=== PATIENT | male | born 1955 | race Caucasian/White ===

== ENCOUNTER 2017-07-04 09:56 | Emergency (ER) | payer MEDICARE, MEDICAID ==
--- NOTE | 2017-07-04 11:16 | CT ---
CT BRAIN WITHOUT CONTRAST: Comparison: None. History: Headache with dizziness and weakness for three days. Technique: Multiple contiguous axial images were obtained in a CT of the brain without contrast. FINDINGS: There are scattered hypodensities in the subcortical and periventricular white matter, likely seconda ry to small vessel ischemic disease. There is no evidence of hydrocephalus, intracranial hemorrhage, or extraaxial fluid collection. No large confluent infarction is seen. The calvarium and overlying soft tissues are unremarkable. The visualized paranasal sinuses and masto id air cells are well aerated. IMPRESSION: Small vessel ischemic disease without acute intracranial abnormality. POS: [facility]
[2017-07-04 11:29] LABS: Hemoglobin 14.7 g/dL (14.0-18.0); Mean Corpuscular HGB CONC 35.3 g/dL (32.0-36.0); Mean Corpuscular Hemoglobin 32.8 pg (27.0-31.0); Mean Corpuscular Volume 92.8 fl (80.0-94.0); Mean Platelet Volume 6.8 fL (7.4-10.4); Platelet Count 110 thou/uL (130-400); RBC Distribution Width 11.9 % (11.5-14.5); Red Blood Cell (RBC) Count 4.47 mill/uL (4.70-6.10); White Blood Cell (WBC) Count 2.7 thou/uL (4.8-10.8)
[2017-07-04 11:33] LABS: ALT (SGPT) 29 U/L (8-55); AST (SGOT) 87 U/L (5-34); Albumin 3.9 g/dL (3.4-4.8); Alkaline Phosphatase 86 U/L (40-150); Anion Gap 14 mmol/L (10-20); BUN (Urea Nitrogen) 10 mg/dL (8.4-25.7); Bilirubin, Total 2.5 mg/dL (0.2-1.2); Calc. Creatinine Clearance 0 mL/min (70-130); Calcium 8.9 mg/dL (7.8-10.44); Carbon Dioxide 26 mmol/L (23-31); Chloride 96 mmol/L (98-107); Estimated GFR-MDRD Greater than 90; Globulin 4.6 g/dL (2.4-3.5); Glucose 137 mg/dL (80-115); Potassium 3.1 mmol/L (3.5-5.1); Protein, Total 8.5 g/dL (5.8-8.1); Sodium 133 mmol/L (136-145)
[2017-07-04 11:35] LABS: Band 11 % (5-11); Lymphocytes 33 % (21-51); MDiff Complete? YES; Monocytes 22 % (0-10); Neutrophil 31 % (42-75); PLT Morphology Comment Appears Decreased; RBC Morphology Normal; Reactive Lymphocytes 3 % (0-10)
--- NOTE | 2017-07-04 11:54 | RAD ---
CHEST ONE VIEW: History: Dyspnea. Comparison: None. FINDINGS: Moderate reversed S-shaped scoliosis of the thoracic spine. Bilateral layering effusion. Chronic pleu ral and parenchymal changes in the lung bases. Right infrahilar air space opacity. No associated rib fracture. IMPRESSION: 1. Small right effusion. 2. Chronic appearing interstitial opacities in both lower lobes as well as right middle lobe. 3. Right hilar and infrahilar opacity both may reflect scarring or pneumonia versus less likely mass. Follow up recommended. POS: [facility]
[2017-07-04] MEDS ORDERED: Potassium Chloride 20 MEQ TAB ONE (11:58)
[2017-07-04] MEDS ORDERED: Azithromycin 250 MG TAB ONE (11:58)
== END 2017-07-04 14:04 | disposition home or self-care (01) ==
LOC: ERS 09:56
DX: J18.9 Pneumonia, unspecified organism (principal); I11.0 Hypertensive heart disease with heart failure; I50.9 Heart failure, unspecified; J45.909 Unspecified asthma, uncomplicated; Z87.891 Personal history of nicotine dependence
CPT/HCPCS: 70450; 71045; 80053; 85025

== ENCOUNTER 2020-08-04 10:17 | Outpatient (CLI) | payer MEDICARE, MEDICAID | END 2020-08-04 10:18 | disposition home or self-care (01) | LOC: BICRAD 10:17 | PROVIDERS: ATTEND Physician Assistant | DX: M25.612 Stiffness of left shoulder, not elsewhere classified (principal); M19.012 Primary osteoarthritis, left shoulder ==

== ENCOUNTER 2023-06-07 11:21 | Inpatient (IN) | payer MEDICARE, MEDICAID ==
[2023-06-07 12:26] LABS: #Eosinphils 0.1 thou/uL (0.0-0.7); #Monocytes 0.4 thou/uL (0.11-0.59); #Neutrophils 2.1 thou/uL (1.40-6.50); %Basophils 0.9 % (0.0-1.0); %Eosinophils 3.5 % (0.0-10.0); %Lymphocytes 15.2 % (21.0-51.0); %Monocytes 13.9 % (0.0-10.0); %Neutrophils 66.2 % (42.0-75.0); Hematocrit 35.6 % (42.0-52.0); Hemoglobin 12.8 g/dL (14.0-18.0); Mean Corpuscular Hemoglobin 33.1 pg (27.0-31.0); Mean Platelet Volume 8.3 fL (7.4-10.4); Platelet Count 120 10x3/uL (130-400); RBC Distribution Width 12.5 % (11.5-14.5); Red Blood Cell (RBC) Count 3.87 mill/uL (4.70-6.10); White Blood Cell (WBC) Count 3.2 10x3/uL (4.8-10.8)
[2023-06-07 12:49] LABS: ALT (SGPT) 10 U/L (8-55); AST (SGOT) 25 U/L (5-34); Alkaline Phosphatase 80 U/L (40-110); Anion Gap 13 mmol/L (10-20); BUN (Urea Nitrogen) 8 mg/dL (8.4-25.7); Bilirubin, Total 2.7 mg/dL (0.2-1.2); Calc. Creatinine Clearance 0 mL/min (70-130); Calcium 8.8 mg/dL (7.8-10.44); Carbon Dioxide 33 mmol/L (23-31); Chloride 92 mmol/L (98-107); Estimated GFR 99; Glucose 124 mg/dL (80-115); Potassium 3.6 mmol/L (3.5-5.1); Sodium 134 mmol/L (136-145)
[2023-06-07 12:59] LABS: Troponin I 0.047 ng/mL (< 0.028)
[2023-06-07] MEDS ORDERED: Acetaminophen 500 MG TAB ONE (13:36)
[2023-06-07] MEDS ORDERED: Iopamidol-370 76% 500 ML MDV (1 ML CHARGE) ONE (13:37)
[2023-06-07] MEDS ORDERED: Morphine 4 MG/ML VIAL ONE (15:11)
[2023-06-07 16:28] LABS: Troponin I 0.037 ng/mL (< 0.028)
[2023-06-07] MEDS ORDERED: Acetaminophen 325 MG TAB PO PRN (18:40)
[2023-06-07] MEDS ORDERED: HYDROcodone/Acetaminophen 5/325 mg Tablet PO PRN (18:41)
[2023-06-07] MEDS ORDERED: Ondansetron ODT 8 MG TAB SL PRN (18:42)
[2023-06-07 19:08] LABS: Troponin I 0.042 ng/mL (< 0.028)
[2023-06-07 19:47] VITALS: BMI 21.7
[2023-06-07] MEDS: Enoxaparin 40 MG (0.4 mL) SYRINGE SC SCH (20:44)
[2023-06-08] MEDS: Ipratropium/Albuterol 3 ML NEB NEB SCH ×2 (07:06→18:16)
[2023-06-08] MEDS: Thiamine 100 MG TAB PO SCH (09:10)
[2023-06-08] MEDS: Folic Acid 1 MG TAB PO SCH (09:10)
[2023-06-08] MEDS: Aspirin 81 mg Enteric Coated Tablet PO SCH (09:10)
[2023-06-08] MEDS: Multivitamin W/ Minerals 1 TAB PO SCH (09:10)
[2023-06-08] MEDS: Enoxaparin 40 MG (0.4 mL) SYRINGE SC SCH (20:19)
[2023-06-09] MEDS: Ipratropium/Albuterol 3 ML NEB NEB SCH ×2 (07:06→18:43)
[2023-06-09] MEDS: Thiamine 100 MG TAB PO SCH (08:55)
[2023-06-09] MEDS: Multivitamin W/ Minerals 1 TAB PO SCH (08:55)
[2023-06-09] MEDS: Aspirin 81 mg Enteric Coated Tablet PO SCH (08:55)
[2023-06-09] MEDS: Folic Acid 1 MG TAB PO SCH (08:55)
[2023-06-09] MEDS: Enoxaparin 40 MG (0.4 mL) SYRINGE SC SCH (20:12)
[2023-06-10 06:39] LABS: #Eosinphils 0.1 thou/uL (0.0-0.7); #Monocytes 0.5 thou/uL (0.11-0.59); #Neutrophils 2.1 thou/uL (1.40-6.50); %Basophils 0.6 % (0.0-1.0); %Eosinophils 3.1 % (0.0-10.0); %Monocytes 15.8 % (0.0-10.0); %Neutrophils 63.5 % (42.0-75.0); Hematocrit 32.6 % (42.0-52.0); Hemoglobin 11.3 g/dL (14.0-18.0); Mean Corpuscular HGB CONC 34.7 g/dL (32.0-36.0); Mean Corpuscular Volume 95.3 fl (78.0-98.0); Mean Platelet Volume 8.3 fL (7.4-10.4); Platelet Count 124 10x3/uL (130-400); RBC Distribution Width 12.4 % (11.5-14.5); Red Blood Cell (RBC) Count 3.42 mill/uL (4.70-6.10); White Blood Cell (WBC) Count 3.2 10x3/uL (4.8-10.8)
[2023-06-10 07:09] LABS: ALT (SGPT) 10 U/L (8-55); AST (SGOT) 25 U/L (5-34); Albumin 2.8 g/dL (3.4-4.8); Alkaline Phosphatase 75 U/L (40-110); Anion Gap 10 mmol/L (10-20); BUN (Urea Nitrogen) 9 mg/dL (8.4-25.7); Bilirubin, Total 2.4 mg/dL (0.2-1.2); Calc. Creatinine Clearance 88 mL/min (70-130); Calcium 8.6 mg/dL (7.8-10.44); Carbon Dioxide 31 mmol/L (23-31); Chloride 97 mmol/L (98-107); Estimated GFR 101; Globulin 3.7 g/dL (2.4-3.5); Glucose 108 mg/dL (80-115); Potassium 4.3 mmol/L (3.5-5.1); Protein, Total 6.5 g/dL (5.8-8.1); Sodium 134 mmol/L (136-145)
[2023-06-10] MEDS: Ipratropium/Albuterol 3 ML NEB NEB SCH ×2 (07:57→18:43)
[2023-06-10] MEDS ORDERED: FLU VACC QS2023(65UP)/MF59C/PF 60 MCG/0.5 ML SYRINGE IM ONE (09:00)
[2023-06-10] MEDS: Folic Acid 1 MG TAB PO SCH (09:56)
[2023-06-10] MEDS: Multivitamin W/ Minerals 1 TAB PO SCH (09:56)
[2023-06-10] MEDS: Aspirin 81 mg Enteric Coated Tablet PO SCH (09:56)
[2023-06-10] MEDS: Thiamine 100 MG TAB PO SCH (09:56)
[2023-06-10 13:38] LABS: Magnesium 1.5 mg/dL (1.6-2.6)
[2023-06-10] MEDS ORDERED: Magnesium Sulfate In Water 4 GM in Premix 1 BAG IVPB SCH (17:15)
[2023-06-10] MEDS ORDERED: Magnesium Sulfate 4 GM in Sodium Chloride 0.9% 250 ML 250 ML IVPB SCH (17:15)
[2023-06-10] MEDS ORDERED: traMADol HCl 50 MG TAB PO PRN (17:43)
[2023-06-10] MEDS ORDERED: Magnesium Oxide 400 MG TAB PO SCH (19:45)
[2023-06-11] MEDS: Ipratropium/Albuterol 3 ML NEB NEB SCH (07:17)
[2023-06-11 07:29] LABS: #Eosinphils 0.1 thou/uL (0.0-0.7); #Monocytes 0.4 thou/uL (0.11-0.59); #Neutrophils 2.3 thou/uL (1.40-6.50); %Basophils 0.6 % (0.0-1.0); %Eosinophils 4.2 % (0.0-10.0); %Lymphocytes 10.5 % (21.0-51.0); %Monocytes 12.5 % (0.0-10.0); %Neutrophils 71.9 % (42.0-75.0); Hematocrit 33.7 % (42.0-52.0); Hemoglobin 11.7 g/dL (14.0-18.0); Mean Corpuscular HGB CONC 34.7 g/dL (32.0-36.0); Mean Corpuscular Hemoglobin 33.1 pg (27.0-31.0); Mean Corpuscular Volume 95.5 fl (78.0-98.0); Mean Platelet Volume 8.9 fL (7.4-10.4); RBC Distribution Width 12.4 % (11.5-14.5); Red Blood Cell (RBC) Count 3.53 mill/uL (4.70-6.10); White Blood Cell (WBC) Count 3.1 10x3/uL (4.8-10.8)
[2023-06-11 07:37] LABS: Platelet Count 111 10x3/uL (130-400)
[2023-06-11 07:40] LABS: INR-International Normal Ratio 1.3; PTT 34.3 sec (22.9-36.1); Prothrombin Time 15.9 sec (12.0-14.7)
[2023-06-11 07:44] LABS: Anion Gap 12 mmol/L (10-20); BUN (Urea Nitrogen) 11 mg/dL (8.4-25.7); Calc. Creatinine Clearance 91 mL/min (70-130); Calcium 8.5 mg/dL (7.8-10.44); Carbon Dioxide 24 mmol/L (23-31); Chloride 98 mmol/L (98-107); Estimated GFR 102; Glucose 106 mg/dL (80-115); Magnesium 3.7 mg/dL (1.6-2.6); Sodium 130 mmol/L (136-145)
[2023-06-11] MEDS: Thiamine 100 MG TAB PO SCH (08:59)
[2023-06-11] MEDS: Folic Acid 1 MG TAB PO SCH (08:59)
[2023-06-11] MEDS: Multivitamin W/ Minerals 1 TAB PO SCH (08:59)
[2023-06-11] MEDS: Aspirin 81 mg Enteric Coated Tablet PO SCH (08:59)
[2023-06-11] MEDS ORDERED: Ergocalciferol 1.25 MG(50,000 UNITS) CAP PO SCH (09:00)
[2023-06-11 12:27] VITALS: BP 150/72; TEMP 98.2
== END 2023-06-11 16:02 | DRG 183 ==
LOC: ERS 11:21 → ERHOLD 14:21 → 2SW 19:48 → OBSVTOIN 06-08 14:18
PROVIDERS: ADMIT Internal Medicine; ATTEND Internal Medicine
DX: S22.42XA Multiple fractures of ribs, left side, initial encounter for closed fracture (principal); I21.A1 Myocardial infarction type 2; D61.818 Other pancytopenia; M48.56XA Collapsed vertebra, not elsewhere classified, lumbar region, initial encounter for fracture; E44.0 Moderate protein-calorie malnutrition; E87.1 Hypo-osmolality and hyponatremia; I42.9 Cardiomyopathy, unspecified; I48.20 Chronic atrial fibrillation, unspecified; I10 Essential (primary) hypertension; M21.371 Foot drop, right foot; J45.909 Unspecified asthma, uncomplicated; K80.20 Calculus of gallbladder without cholecystitis without obstruction; E83.42 Hypomagnesemia; D69.6 Thrombocytopenia, unspecified; E88.09 Other disorders of plasma-protein metabolism, not elsewhere classified; R53.1 Weakness; M48.061 Spinal stenosis, lumbar region without neurogenic claudication; M48.07 Spinal stenosis, lumbosacral region; K74.60 Unspecified cirrhosis of liver; Z98.890 Other specified postprocedural states; Z79.51 Long term (current) use of inhaled steroids; Z68.21 Body mass index [BMI] 21.0-21.9, adult; W19.XXXA Unspecified fall, initial encounter
CPT/HCPCS: 36415; 70450; 71250; 71260; 72125; 72170; 74177; 80048; 80053; 82306; 83735; 84100; 84484; 85025; 85610; 85730; 87324; 87449; 90471; 90694; 93005; 93306; 94640; 94760; 96372; 96374; G0008; G0378; J1650; J2270; J7620; Q9967

== ENCOUNTER 2023-11-17 12:14 | Inpatient (IN) | payer MEDICARE, MEDICAID ==
[2023-11-17 13:47] LABS: #Basophils 0.03 10x3/uL (0.0-0.2); %Basophils 0.7 % (0.0-1.0); %Eosinophils 1.8 % (0.0-10.0); %Lymphocytes 11.3 % (21.0-51.0); %Monocytes 13.1 % (0.0-10.0); %Neutrophils 72.9 % (42.0-75.0); Hematocrit 37.6 % (42.0-52.0); Hemoglobin 13.3 g/dL (14.0-18.0); Mean Corpuscular HGB CONC 35.4 g/dL (32.0-36.0); Mean Corpuscular Hemoglobin 32.8 pg (27.0-31.0); Mean Corpuscular Volume 92.8 fL (78.0-98.0); Mean Platelet Volume 8.7 fL (7.4-10.4); Platelet Count 124 10x3/uL (130-400); RBC Distribution Width 12.7 % (11.5-14.5); Red Blood Cell (RBC) Count 4.05 mill/uL (4.70-6.10)
[2023-11-17 14:37] LABS: Troponin I 0.031 ng/mL (< 0.028)
[2023-11-17 14:41] LABS: Calcium 9.1 mg/dL (7.8-10.44); Chloride 98 mmol/L (98-107); Potassium 4.1 mmol/L (3.5-5.1); Sodium 132 mmol/L (136-145)
[2023-11-17 14:42] LABS: Globulin 4.2 g/dL (2.4-3.5); Glucose 116 mg/dL (80-115); Protein, Total 7.2 g/dL (5.8-8.1)
[2023-11-17 14:43] LABS: Anion Gap 14 mmol/L (10-20); Carbon Dioxide 24 mmol/L (23-31)
[2023-11-17 14:45] LABS: Alkaline Phosphatase 75 U/L (40-110); Bilirubin, Total 4.2 mg/dL (0.2-1.2)
[2023-11-17 14:46] LABS: BUN (Urea Nitrogen) 10 mg/dL (8.4-25.7); Calc. Creatinine Clearance 0 mL/min (70-130); Estimated GFR 100
[2023-11-17 14:48] LABS: ALT (SGPT) 13 U/L (8-55); AST (SGOT) 30 U/L (5-34); CK (CPK) 90 U/L (30-200)
[2023-11-17 17:18] LABS: Bilirubin Negative (Negative); Blood, Urine Negative (Negative); CAUTI Indications for Culture Alt mental st,lethar; Clarity Turbid (Clear); Glucose, Urine (Dipstick) Normal (Negative); Ketone, Urine Negative (Negative); Leukocyte 500 Leu/uL (Negative); Nitrite Negative (Negative); Protein, Urine (Dipstick) Negative (Neg-Trace); RBC/HPF 0-3 HPF (0-3); Specific Gravity, Urine 1.008 (1.002-1.036); Urobilinogen 3 mg/dL (Less than 2); WBC/HPF 21-50 HPF (0-3); pH, Urine 6.5 (5.0-9.0)
[2023-11-17 17:41] LABS: Transitional Epithelial 0-3 HPF (None Seen)
[2023-11-17 17:42] LABS: Bacteria/HPF 4+ HPF (None Seen); Urine Culture Reflex Yes Yes
[2023-11-17] MEDS ORDERED: Sodium Chloride 0.9% 100 ML ONE (19:51)
[2023-11-17 22:24] LABS: Troponin I 0.038 ng/mL (< 0.028)
[2023-11-17] MEDS ORDERED: Acetaminophen 650 MG Suppository PR PRN (22:53)
[2023-11-17] MEDS ORDERED: Ondansetron PF 4 MG/2 ML Vial IVP PRN (22:53)
[2023-11-17] MEDS ORDERED: Ondansetron ODT 4 MG TAB PO PRN (22:53)
[2023-11-17] MEDS ORDERED: Albuterol 200 PUFF INH INH PRN (22:58)
[2023-11-18 00:34] LABS: Troponin I 0.041 ng/mL (< 0.028)
[2023-11-18 02:12] VITALS: BMI 21.7
[2023-11-18 05:36] LABS: #Basophils 0.03 10x3/uL (0.0-0.2); %Basophils 0.8 % (0.0-1.0); %Eosinophils 3.5 % (0.0-10.0); %Lymphocytes 17.2 % (21.0-51.0); %Neutrophils 60.2 % (42.0-75.0); Hematocrit 33.2 % (42.0-52.0); Hemoglobin 11.8 g/dL (14.0-18.0); Mean Corpuscular HGB CONC 35.5 g/dL (32.0-36.0); Mean Corpuscular Hemoglobin 33.1 pg (27.0-31.0); Mean Platelet Volume 8.9 fL (7.4-10.4); Platelet Count 119 10x3/uL (130-400); RBC Distribution Width 12.5 % (11.5-14.5); Red Blood Cell (RBC) Count 3.57 mill/uL (4.70-6.10)
[2023-11-18 06:03] LABS: Iron 48 ug/dL (65-175); Iron Binding Capacity, Total 165 mcg/dL (261-462)
[2023-11-18 06:04] LABS: ALT (SGPT) 11 U/L (8-55); AST (SGOT) 25 U/L (5-34); Albumin 2.7 g/dL (3.4-4.8); Alkaline Phosphatase 65 U/L (40-110); Anion Gap 13 mmol/L (10-20); BUN (Urea Nitrogen) 12 mg/dL (8.4-25.7); Bilirubin, Total 2.6 mg/dL (0.2-1.2); Calc. Creatinine Clearance 110 mL/min (70-130); Calcium 8.7 mg/dL (7.8-10.44); Carbon Dioxide 25 mmol/L (23-31); Chloride 100 mmol/L (98-107); Estimated GFR 102; Globulin 3.7 g/dL (2.4-3.5); Glucose 106 mg/dL (80-115); Iron 47 ug/dL (65-175); Iron Binding Capacity, Total 168 mcg/dL (261-462); Potassium 3.4 mmol/L (3.5-5.1); Protein, Total 6.4 g/dL (5.8-8.1); Sodium 135 mmol/L (136-145)
[2023-11-18] MEDS: Cyanocobalamin (Vitamin B-12) 1,000 MCG TAB PO SCH (08:25)
[2023-11-18] MEDS: Famotidine 20 MG TAB PO SCH (08:25)
[2023-11-18] MEDS: Folic Acid 1 MG TAB PO SCH (08:26)
[2023-11-18] MEDS: Thiamine 100 MG TAB PO SCH (08:26)
[2023-11-18] MEDS: Multivitamin W/ Minerals 1 TAB PO SCH (08:26)
[2023-11-18] MEDS: Famotidine/PF 20 mg/2ml Vial SLOW IVP SCH (08:26)
[2023-11-18] MEDS: cefTRIAXone\\ROCEPHIN 1 GM in Sodium Chloride 0.9% 100 ML IVPB SCH (09:34)
[2023-11-18] MEDS: Lorazepam 0.5 MG TAB PO PRN (11:39)
[2023-11-18 17:39] LABS: Amphetamine Not Detected (NotDetected); Barbiturates Screen Not Detected (NotDetected); Benzodiazepine Screen Not Detected (NotDetected); Cocaine Metabolite Screen Not Detected (NotDetected); Methadone Not Detected (NotDetected); Methamphetamine Not Detected (NotDetected); Opiate Screen Not Detected (NotDetected); Oxycodone Screen Not Detected (NotDetected); Phencyclidine (PCP) Not Detected (NotDetected); THC/Cannabinoid Screen Not Detected (NotDetected); Tricyclic Screen Not Detected (NotDetected)
[2023-11-18] MEDS: Acetaminophen 650 MG/20.3 ML UDCUP PO PRN (19:51)
[2023-11-19 05:14] LABS: Troponin I 0.041 ng/mL (< 0.028)
[2023-11-19] MEDS ORDERED: Milk Of Magnesia 30 ML UDCUP PO PRN (17:37)
[2023-11-20 05:19] LABS: #Basophils 0.03 10x3/uL (0.0-0.2); %Basophils 0.9 % (0.0-1.0); %Eosinophils 4.9 % (0.0-10.0); %Lymphocytes 21.9 % (21.0-51.0); Hematocrit 31.7 % (42.0-52.0); Hemoglobin 11.3 g/dL (14.0-18.0); Mean Corpuscular HGB CONC 35.6 g/dL (32.0-36.0); Mean Corpuscular Hemoglobin 32.9 pg (27.0-31.0); Mean Corpuscular Volume 92.4 fL (78.0-98.0); Mean Platelet Volume 8.9 fL (7.4-10.4); Platelet Count 128 10x3/uL (130-400); RBC Distribution Width 12.3 % (11.5-14.5); Red Blood Cell (RBC) Count 3.43 mill/uL (4.70-6.10)
[2023-11-20 05:23] LABS: ALT (SGPT) 14 U/L (8-55); AST (SGOT) 27 U/L (5-34); Albumin 2.5 g/dL (3.4-4.8); Alkaline Phosphatase 68 U/L (40-110); Anion Gap 11 mmol/L (10-20); BUN (Urea Nitrogen) 10 mg/dL (8.4-25.7); Bilirubin, Total 1.6 mg/dL (0.2-1.2); Calc. Creatinine Clearance 120 mL/min (70-130); Calcium 8.3 mg/dL (7.8-10.44); Carbon Dioxide 25 mmol/L (23-31); Chloride 97 mmol/L (98-107); Estimated GFR 104; Globulin 3.6 g/dL (2.4-3.5); Glucose 110 mg/dL (80-115); Potassium 3.5 mmol/L (3.5-5.1); Protein, Total 6.1 g/dL (5.8-8.1); Sodium 129 mmol/L (136-145)
[2023-11-20] MEDS: Aspirin 81 mg Enteric Coated Tablet PO SCH (08:48)
[2023-11-20] MEDS: traZODone HCl 50 MG TAB PO PRN (21:42)
[2023-11-21 04:45] LABS: #Basophils 0.03 10x3/uL (0.0-0.2); %Basophils 0.8 % (0.0-1.0); %Eosinophils 4.1 % (0.0-10.0); %Lymphocytes 19.5 % (21.0-51.0); %Monocytes 14.2 % (0.0-10.0); %Neutrophils 61.1 % (42.0-75.0); Hematocrit 31.4 % (42.0-52.0); Hemoglobin 11.3 g/dL (14.0-18.0); Mean Corpuscular Hemoglobin 34.3 pg (27.0-31.0); Mean Corpuscular Volume 95.4 fL (78.0-98.0); Mean Platelet Volume 8.7 fL (7.4-10.4); Platelet Count 134 10x3/uL (130-400); RBC Distribution Width 12.4 % (11.5-14.5); Red Blood Cell (RBC) Count 3.29 mill/uL (4.70-6.10)
[2023-11-21 04:55] LABS: Anion Gap 12 mmol/L (10-20); BUN (Urea Nitrogen) 11 mg/dL (8.4-25.7); Calc. Creatinine Clearance 114 mL/min (70-130); Calcium 8.5 mg/dL (7.8-10.44); Carbon Dioxide 27 mmol/L (23-31); Chloride 99 mmol/L (98-107); Estimated GFR 103; Glucose 105 mg/dL (80-115); Magnesium 1.4 mg/dL (1.6-2.6); Potassium 3.6 mmol/L (3.5-5.1); Sodium 134 mmol/L (136-145)
[2023-11-21] MEDS: Magnesium 2 GM/50 ML(in water) 2 GM in Premix 1 BAG IVPB SCH (09:56)
[2023-11-22 04:52] LABS: #Basophils 0.03 10x3/uL (0.0-0.2); %Basophils 0.7 % (0.0-1.0); %Eosinophils 3.4 % (0.0-10.0); %Lymphocytes 14.9 % (21.0-51.0); %Monocytes 11.7 % (0.0-10.0); %Neutrophils 68.8 % (42.0-75.0); Hematocrit 30.5 % (42.0-52.0); Hemoglobin 10.7 g/dL (14.0-18.0); Mean Corpuscular HGB CONC 35.1 g/dL (32.0-36.0); Mean Corpuscular Hemoglobin 34.2 pg (27.0-31.0); Mean Corpuscular Volume 97.4 fL (78.0-98.0); Mean Platelet Volume 8.7 fL (7.4-10.4); Platelet Count 124 10x3/uL (130-400); RBC Distribution Width 12.7 % (11.5-14.5); Red Blood Cell (RBC) Count 3.13 mill/uL (4.70-6.10)
[2023-11-22 05:18] LABS: ALT (SGPT) 15 U/L (8-55); AST (SGOT) 29 U/L (5-34); Albumin 2.3 g/dL (3.4-4.8); Alkaline Phosphatase 74 U/L (40-110); Anion Gap 10 mmol/L (10-20); BUN (Urea Nitrogen) 11 mg/dL (8.4-25.7); Bilirubin, Total 1.4 mg/dL (0.2-1.2); Calc. Creatinine Clearance 114 mL/min (70-130); Calcium 8.2 mg/dL (7.8-10.44); Carbon Dioxide 26 mmol/L (23-31); Chloride 99 mmol/L (98-107); Estimated GFR 103; Globulin 3.6 g/dL (2.4-3.5); Glucose 120 mg/dL (80-115); Magnesium 1.6 mg/dL (1.6-2.6); Potassium 3.6 mmol/L (3.5-5.1); Protein, Total 5.9 g/dL (5.8-8.1); Sodium 131 mmol/L (136-145)
[2023-11-22 08:32] VITALS: TEMP 97.8
[2023-11-22] MEDS: Magnesium 2 GM/50 ML(in water) 2 GM in Premix 1 BAG IVPB SCH ×2 (10:48→10:55)
[2023-11-22 16:33] VITALS: BP 124/75
[2023-11-23] MEDS ORDERED: Magnesium Oxide 400 MG TAB PO SCH (09:00)
== END 2023-11-22 17:45 | DRG 689 ==
LOC: ERS 12:14 → T4-A 18:48 → 2NO 11-18 02:06 → OBSVTOIN 11-19 14:03
PROVIDERS: ADMIT Internal Medicine; ATTEND Hospitalist
DX: N39.0 Urinary tract infection, site not specified (principal); E43 Unspecified severe protein-calorie malnutrition; I50.42 Chronic combined systolic (congestive) and diastolic (congestive) heart failure; E87.1 Hypo-osmolality and hyponatremia; D61.818 Other pancytopenia; K74.60 Unspecified cirrhosis of liver; R62.7 Adult failure to thrive; R53.81 Other malaise; R29.6 Repeated falls; I10 Essential (primary) hypertension; B96.20 Unspecified Escherichia coli [E. coli] as the cause of diseases classified elsewhere; K76.9 Liver disease, unspecified; D69.6 Thrombocytopenia, unspecified; J45.909 Unspecified asthma, uncomplicated; I48.0 Paroxysmal atrial fibrillation; R79.89 Other specified abnormal findings of blood chemistry; W19.XXXA Unspecified fall, initial encounter; Z68.21 Body mass index [BMI] 21.0-21.9, adult; Z79.82 Long term (current) use of aspirin; Z79.899 Other long term (current) drug therapy; Z91.148 Patient's other noncompliance with medication regimen for other reason
CPT/HCPCS: 36415; 36416; 70450; 71045; 76705; 80048; 80053; 80306; 81001; 82140; 82550; 83540; 83550; 83735; 84484; 85025; 87040; 87077; 87086; 87186; 93005; 96374; 96376; G0378; J0696; J3475; J3490

== ENCOUNTER 2024-05-30 14:10 | Emergency (ER) | payer MEDICARE, MEDICAID ==
[2024-05-30 15:09] LABS: #Basophils 0.03 10x3/uL (0.0-0.2); %Basophils 0.5 % (0.0-1.0); %Eosinophils 0.5 % (0.0-10.0); %Lymphocytes 3.8 % (21.0-51.0); %Monocytes 8.8 % (0.0-10.0); %Neutrophils 86.1 % (42.0-75.0); Hemoglobin 11.3 g/dL (14.0-18.0); Mean Corpuscular HGB CONC 35.3 g/dL (32.0-36.0); Mean Corpuscular Hemoglobin 32.2 pg (27.0-31.0); Mean Corpuscular Volume 91.2 fL (78.0-98.0); Mean Platelet Volume 8.3 fL (7.4-10.4); Platelet Count 115 10x3/uL (130-400); RBC Distribution Width 12.9 % (11.5-14.5); Red Blood Cell (RBC) Count 3.51 mill/uL (4.70-6.10)
[2024-05-30 15:12] LABS: Analyzer IN Cardio ER; Base Excess 1.7 mEq/L (-2.0 to +3.0); Calcium, Ionized (venous) 1.05 mmol/L (1.16-1.32); Chloride (VBG) 97 mmol/L (98-106); Hematocrit-VBG 37 % (42.0-52.0); Hemoglobin (Hb) 12.6 g/dL (12.6-17.4); Potassium (VBG) 4.09 mmol/L (3.70-5.30); Sodium 127 mmol/L (133-146)
[2024-05-30 15:15] LABS: ALT (SGPT) 12 U/L (8-55); AST (SGOT) 35 U/L (5-34); Albumin 2.8 g/dL (3.4-4.8); Alkaline Phosphatase 63 U/L (40-110); Anion Gap 11 mmol/L (10-20); BUN (Urea Nitrogen) 12 mg/dL (8.4-25.7); Bilirubin, Total 2.1 mg/dL (0.2-1.2); Calc. Creatinine Clearance 0 mL/min (70-130); Calcium 8.5 mg/dL (7.8-10.44); Carbon Dioxide 20 mmol/L (23-31); Chloride 99 mmol/L (98-107); Estimated GFR 106; Globulin 4.6 g/dL (2.4-3.5); Glucose 120 mg/dL (80-115); Potassium 4.4 mmol/L (3.5-5.1); Protein, Total 7.4 g/dL (5.8-8.1); Sodium 126 mmol/L (136-145)
[2024-05-30] MEDS ORDERED: Sodium Chloride 0.9% 100 ML ONE (15:34)
[2024-05-30] MEDS ORDERED: Piperacillin/Tazobactam 4.5 GM VIAL ONE (15:34)
[2024-05-30] MEDS ORDERED: Vancomycin (BATCH) 1.75 GM in Premix 1 BAG IVPB SCH (15:45)
[2024-05-30 16:30] LABS: Bilirubin Negative (Negative); Blood, Urine 2+ (Negative); CAUTI Indications for Culture Alt mental st,lethar; Clarity Turbid (Clear); Glucose, Urine (Dipstick) Normal (Negative); Ketone, Urine Negative (Negative); Leukocyte 500 Leu/uL (Negative); Nitrite Negative (Negative); Protein, Urine (Dipstick) Negative (Neg-Trace); Specific Gravity, Urine 1.011 (1.002-1.036); Squamous Epithelial 0-3 HPF (0-3); Urobilinogen 3 mg/dL (Less than 2); WBC/HPF Greater than 50 HPF (0-3)
[2024-05-30 16:32] LABS: Bacteria/HPF 1+ HPF (None Seen)
[2024-05-30 16:34] LABS: Urine Culture Reflex Yes Yes
== END 2024-05-30 18:52 | disposition home or self-care (01) ==
LOC: ERS 14:10
DX: N39.0 Urinary tract infection, site not specified (principal); J18.9 Pneumonia, unspecified organism; I11.0 Hypertensive heart disease with heart failure; I50.9 Heart failure, unspecified; J45.909 Unspecified asthma, uncomplicated
CPT/HCPCS: 70450; 71045; 80053; 81001; 82805; 83605; 85025; 87040; 87086; 87428; 94760; J2543; J3370; 51701; 87077; 96365; 96366; 96367